=== PATIENT | male | born 1965 | race African-American/Black ===

== ENCOUNTER 2018-02-28 15:29 | Emergency (ER) | payer OTHER ==
--- NOTE | 2018-02-28 17:03 | ED Physician Chart ---
ED Chief Complaint/HPI - Patient Information Date Seen:: 02/28/18 Time Seen:: 16:45 Chief Complaint:: right shoulder pain History of Present Illness:: 2 weeks ago the patient fell off a motorized skate board landing on his right shoulder. Patient is right-hand dominant. Allergies:: Allergies Allergy/AdvReac Type Severity Reaction Status Date / Time Penicillins Allergy Verified 02/28/18 16:33 Vitals:: Vital Signs - 8 hr 02/28/18 16:28 Temp 97.9 F HR 89 RR 16 BP 146/94 Historian:: Patient Review:: Nurse's Note Reviewed ED Review of Systems - Review of Systems General/Constitutional: No fever, No chills Skin: No skin lesions Head: No headache Eyes: No loss of vision ENT: No earache Neck: No neck pain, No swelling Cardio Vascular: No chest pain, No palpitations Pulmonary: No SOB GI: No nausea, Vomiting, No diarrhea G/U: No dysuria Musculoskeletal: Bone or joint pain Psychiatric: No prior psych history, No depression, No anxiety Hematopoietic: No bruising Allergic/Immuno: No urticaria Neurological: No syncope, No focal symptoms ED Past Medical History - Past Medical History Past Medical History: No significant medical hx Family History: None Social History: Non Smoker, No Alcohol, No Drug Use Surgical History: None Psychiatricy History: None Medication: None ED Physical Exam - Physical Examination General/Constitutional: Well-developed, well-nourished, Alert, No distress Head: Atraumatic Eyes: Lids, conjuctiva normal, PERRL Skin: Nl inspection, No rash, No skin lesions, No ecchymosis ENMT: External ears, nose nl, TM canals nl, Nasal exam nl, Lips, teeth, gums nl Neck: No nuchal rigidity Respiratory: Nl effort/Exclusion, Clear to Auscultation Cardio Vascular: RRR, No murmur, gallop, rubs, NL S1 S2 GI: No tenderness/rebounding/guarding, No organomegaly, No hernia, Normal BS's : No CVA tenderness Other Extremities comments:: Right shoulder: 1.5 out of 4 tenderness over the acromioclavicular joint; tenderness over posterior humeral head; no scapular tenderness Neuro/Psych: Alert/oriented Misc: No paraspinal tenderness ED Labs/Radiology/EKG Results - Lab Results Results: Right shoulder x-ray showed deposition of calcium inferior to the distal and of the right clavicle; x-ray was otherwise normal ED Assessment - Assessment General Assessment: Calcification noted near the right acromioclavicular joint is certainly not from a recent injury. However, it could be contributing to the patient's pain. The right acromioclavicular joint was normal. ED Septic Shock - . Is Septic Shock (SBP<90, OR Lactate>4 mmol\L) present?: No - <6hrs of presentation: Vital Signs: Vital Signs - 8 hr 02/28/18 16:28 Temp 97.9 F HR 89 RR 16 BP 146/94 ED Reassessment (Disposition) - Reassessment Reassessment Condition:: Unchanged - Diagnosis Diagnosis:: First-degree separation right acromioclavicular joint. - Aftercare/Follow up Instructions Aftercare/Follow-Up Instructions:: Refer to Discharge Instructions - Patient Disposition Discharge/Transfer:: Home Condition at Disposition:: Stable, Unchanged
--- NOTE | 2018-03-01 07:33 | Diagnostic Imaging Report ---
Right shoulder 3 views Indication: Trauma Comparison: none Findings: Mild degenerative changes are noted. No evidence of dislocation. There is an ossicle along the medial aspect of the acromion process on the transscapular Y view probably related to old trauma or degenerative etiology. Impression: Ossicle along the medial aspect of the acromion process seen on the transscapular Y views. This may be related to old trauma or degenerative etiology. Otherwise no evidence of acute fracture or dislocation. In the setting of trauma, if clinical symptoms persist and there is continued concern for an occult fracture, follow up exams in 5-7 days is suggested.
== END 2018-02-28 17:00 | disposition home or self-care (01) ==
LOC: ER 15:29
DX: S43.101A Unspecified dislocation of right acromioclavicular joint, initial encounter (principal); Z88.0 Allergy status to penicillin; V00.131A Fall from skateboard, initial encounter; Y93.51 Activity, roller skating (inline) and skateboarding; Y92.89 Other specified places as the place of occurrence of the external cause; Y99.8 Other external cause status
CPT/HCPCS: 99284; 96372; 73030; J1885; Z7502